=== PATIENT | female | born 1990 | race Caucasian/White ===

== ENCOUNTER 2018-11-16 14:22 | Emergency (ER) | payer OTHER ==
[2018-11-16 14:42] VITALS: RESP 18
[2018-11-16] MEDS ORDERED: SODIUM CHLORIDE 0.9% 500 ML 500 ML IV ONE (14:52)
[2018-11-16 15:28] LABS: Basophils % (A) 0 %; Eosinophils # (A) 0.3 k/uL (0-0.7); Eosinophils % (A) 3 %; HCT 38.6 % (34.0-46.0); HGB 13.1 gm/dL (11.4-16.0); Lymphocytes # (A) 2.4 k/uL (1.0-4.8); Lymphocytes % (A) 22 %; MCH 30.9 pg (25.0-35.0); MCHC 33.9 g/dL (31.0-37.0); Monocytes # (A) 0.4 k/uL (0-1.0); Monocytes % (A) 4 %; Neutrophils # (A) 7.9 k/uL (1.3-7.7); Neutrophils % (A) 71 %; Platelet Count 266 k/uL (150-450); RBC 4.24 m/uL (3.80-5.40); RDW 13.4 % (11.5-15.5); WBC 11.2 k/uL (3.8-10.6)
[2018-11-16 15:32] LABS: African American GFR (CKD) >90 (>60 ml/min/1.73 sqM); Anion Gap 8 mmol/L; Blood Urea Nitrogen 9 mg/dL (7-17); Calcium 9.6 mg/dL (8.4-10.2); Carbon Dioxide 22 mmol/L (22-30); Chloride 105 mmol/L (98-107); Glucose 98 mg/dL (74-99); Potassium 3.9 mmol/L (3.5-5.1); Sodium 135 mmol/L (137-145)
[2018-11-16 15:33] LABS: INR 0.9 (<1.2); Partial Thromboplastin Time 23.1 sec (22.0-30.0); Prothrombin Time 9.7 sec (9.0-12.0)
[2018-11-16 15:47] LABS: Appearance,Urine Cloudy (Clear); Bacteria,Urine Few /hpf; Bilirubin,Urine Negative (Negative); Blood,Urine Negative (Negative); Color,Urine Yellow; Glucose,Urine (UA) Negative (Negative); Ketones,Urine Negative (Negative); Leukocyte Esterase,Urine Large (Negative); Mucus,Urine Few /hpf; Nitrite,Urine Negative (Negative); Protein,Urine Trace (Negative); RBC,Urine 7 /hpf (0-5); Specific Gravity,Urine 1.011 (1.001-1.035); Squamous Epithelial Cell,Urine 30 /hpf (0-4); Urobilinogen,Urine <2.0 mg/dL (<2.0); WBC,Urine 11 /hpf (0-5)
--- NOTE | 2018-11-16 16:14 | US ---
EXAMINATION TYPE: Transabdominal DATE OF EXAM: 11/16/2018 4:05 PM COMPARISON: NONE CLINICAL HISTORY: pain. Back pain and chest pain. EXAM PERFORMED: Transabdominal (TA) EXAM MEASUREMENTS: GESTATIONAL AGE / DATING Physician Established: Not yet established Dates by LMP: (12 weeks/0 days) EDC: 05/31/2019 Dates by First Scan: No previous this is first scan Dates by Current Scan for: (8 weeks/0 days) EDC: 06/28/2019 MATERNAL ANATOMY Uterus: 10.9 x 6.1 x 8.1 cm Right Ovary: 2.6 x 1.3 x 1.4 cm Left Ovary: 4.0 x 2.4 x 3.9 Post CDS / Adnexa: wnl Presence of corpus luteal cyst: no Presence of subchorionic bleed: no GESTATION / SURVEY CRL: 1.6cm (8 weeks/0 days) Heart Rate: 149 bpm Rhythm: Normal IUP: Viable IUP Beta HcG (if available): Not available at this time IMPRESSION: Single viable intrauterine corresponding to ultrasound age 8 weeks 0 days with estimated da te of delivery 06/28/2019 by today's exam.
[2018-11-16 16:24] LABS: HCG,Quantitative Serum 59834.2 mIU/mL
--- NOTE | 2018-11-16 16:27 | ED ---
Abdominal Pain HPI - General Chief Complaint: Abdominal Pain Stated Complaint: -lower back pain Time Seen by Provider: 11/16/18 14:47 Source: patient, RN notes reviewed, old records reviewed Mode of arrival: ambulatory Limitations: no limitations - History of Present Illness Initial Comments: Patient is a 28-year-old female presents emergency room today with complaints of lower back pain radiating down her legs. Sure also reports that she's recently been on she is . Her last menstrual period was in August she does not how far long she was. Patient states that she had a confirmed test at her primary care doctor's office. She started to develop some numbness and tingling sensations on her legs for the past week. Patient denies any fevers or chills or shortness of breath. - Related Data Home Medications Medication Instructions Recorded Confirmed Nhu-Omuk-Pwfid Acid 1 cap PO DAILY 11/16/18 11/16/18 [-U Capsule (formulary)] Allergies Allergy/AdvReac Type Severity Reaction Status Date / Time No Known Allergies Allergy Verified 11/16/18 15:43 Review of Systems ROS Statement: Those systems with pertinent positive or pertinent negative responses have been documented in the HPI. ROS Other: All systems not noted in ROS Statement are negative. Past Medical History Past Medical History: No Reported History Additional Past Medical History / Comment(s): gallstones History of Any Multi-Drug Resistant Organisms: None Reported Past Surgical History: Appendectomy Additional Past Surgical History / Comment(s): IUD removal Past Anesthesia/Blood Transfusion Reactions: No Reported Reaction Past Psychological History: No Psychological Hx Reported Smoking Status: Current every day smoker Past Alcohol Use History: None Reported Past Drug Use History: None Reported - Past Family History Mother History Unknown: Yes Family Medical History: No Reported History General Exam Limitations: no limitations General appearance: alert, in no apparent distress Head exam: Present: atraumatic, normocephalic, normal inspection Eye exam: Present: normal appearance, PERRL, EOMI. Absent: scleral icterus, conjunctival injection, periorbital swelling ENT exam: Present: normal exam, mucous membranes moist Neck exam: Present: normal inspection. Absent: tenderness, meningismus, lymphadenopathy Respiratory exam: Present: normal lung sounds bilaterally. Absent: respiratory distress, wheezes, rales, rhonchi, stridor Cardiovascular Exam: Present: regular rate, normal rhythm, normal heart sounds. Absent: systolic murmur, diastolic murmur, rubs, gallop, clicks GI/Abdominal exam: Present: soft, normal bowel sounds. Absent: distended, tenderness, guarding, rebound, rigid Extremities exam: Present: normal inspection, full ROM, normal capillary refill, other (tenderness over lumbar spine and bilateral sciatica notch. ). Absent: tenderness, pedal edema, joint swelling, calf tenderness Back exam: Present: normal inspection Neurological exam: Present: alert, oriented X3, CN II-XII intact Psychiatric exam: Present: normal affect, normal mood Skin exam: Present: warm, dry, intact, normal color. Absent: rash Course Vital Signs 11/16/18 11/16/18 14:38 17:43 Temperature 98.7 F 97.6 F Pulse Rate 83 79 Respiratory 18 18 Rate Blood Pressure 137/75 118/75 O2 Sat by Pulse 98 100 Oximetry Medical Decision Making - Medical Decision Making This is a 28-year-old female, presents with concerns for back pain and . No fluid leakage or vaginal bleeding. She is on how far long she was. Ultrasound confirmed an 8 week intrauterine . Neck consistent with sciatica is raised and leg. Discussed likely normal . Discussed Tylenol for pain. Discussed following up with her OB and PCP. - Lab Data Result diagrams: 11/16/18 15:11 11/16/18 15:11 Lab Results 11/16/18 11/16/18 11/16/18 Range/Units 15:11 15:11 15:11 WBC 11.2 H (3.8-10.6) k/uL RBC 4.24 (3.80-5.40) m/uL Hgb 13.1 (11.4-16.0) gm/dL Hct 38.6 (34.0-46.0) % MCV 91.0 (80.0-100.0) fL MCH 30.9 (25.0-35.0) pg MCHC 33.9 (31.0-37.0) g/dL RDW 13.4 (11.5-15.5) % Plt Count 266 (150-450) k/uL Neutrophils % 71 % Lymphocytes % 22 % Monocytes % 4 % Eosinophils % 3 % Basophils % 0 % Neutrophils # 7.9 H (1.3-7.7) k/uL Lymphocytes # 2.4 (1.0-4.8) k/uL Monocytes # 0.4 (0-1.0) k/uL Eosinophils # 0.3 (0-0.7) k/uL Basophils # 0.0 (0-0.2) k/uL PT 9.7 (9.0-12.0) sec INR 0.9 (<1.2) APTT 23.1 (22.0-30.0) sec Sodium 135 L (137-145) mmol/L Potassium 3.9 (3.5-5.1) mmol/L Chloride 105 (98-107) mmol/L Carbon Dioxide 22 (22-30) mmol/L Anion Gap 8 mmol/L BUN 9 (7-17) mg/dL Creatinine 0.68 (0.52-1.04) mg/dL Est GFR (CKD-EPI)AfAm >90 (>60 ml/min/1.73 sqM) Est GFR (CKD-EPI)NonAf >90 (>60 ml/min/1.73 sqM) Glucose 98 (74-99) mg/dL Calcium 9.6 (8.4-10.2) mg/dL HCG, Quant 33344.2 mIU/mL Urine Color Urine Appearance (Clear) Urine pH (5.0-8.0) Ur Specific Wake (1.001-1.035) Urine Protein (Negative) Urine Glucose (UA) (Negative) Urine Ketones (Negative) Urine Blood (Negative) Urine Nitrite (Negative) Urine Bilirubin (Negative) Urine Urobilinogen (<2.0) mg/dL Ur Leukocyte Esterase (Negative) Urine RBC (0-5) /hpf Urine WBC (0-5) /hpf Ur Squamous Epith Cells (0-4) /hpf Urine Bacteria (None) /hpf Urine Mucus (None) /hpf Chlamydia Source Chlamydia DNA (PCR) (Neg,Equiv) N. gonorrhoeae Source N.gonorrhoeae DNA Probe (Neg,Equiv) Trichomonas Ag (Rapid) (Negative) Blood Type Blood Type Recheck 11/16/18 11/16/18 11/16/18 Range/Units 15:11 15:30 17:19 WBC (3.8-10.6) k/uL RBC (3.80-5.40) m/uL Hgb (11.4-16.0) gm/dL Hct (34.0-46.0) % MCV (80.0-100.0) fL MCH (25.0-35.0) pg MCHC (31.0-37.0) g/dL RDW (11.5-15.5) % Plt Count (150-450) k/uL Neutrophils % % Lymphocytes % % Monocytes % % Eosinophils % % Basophils % % Neutrophils # (1.3-7.7) k/uL Lymphocytes # (1.0-4.8) k/uL Monocytes # (0-1.0) k/uL Eosinophils # (0-0.7) k/uL Basophils # (0-0.2) k/uL PT (9.0-12.0) sec INR (<1.2) APTT (22.0-30.0) sec Sodium (137-145) mmol/L Potassium (3.5-5.1) mmol/L Chloride (98-107) mmol/L Carbon Dioxide (22-30) mmol/L Anion Gap mmol/L BUN (7-17) mg/dL Creatinine (0.52-1.04) mg/dL Est GFR (CKD-EPI)AfAm (>60 ml/min/1.73 sqM) Est GFR (CKD-EPI)NonAf (>60 ml/min/1.73 sqM) Glucose (74-99) mg/dL Calcium (8.4-10.2) mg/dL HCG, Quant mIU/mL Urine Color Yellow Urine Appearance Cloudy H (Clear) Urine pH 6.0 (5.0-8.0) Ur Specific Wake 1.011 (1.001-1.035) Urine Protein Trace H (Negative) Urine Glucose (UA) Negative (Negative) Urine Ketones Negative (Negative) Urine Blood Negative (Negative) Urine Nitrite Negative (Negative) Urine Bilirubin Negative (Negative) Urine Urobilinogen <2.0 (<2.0) mg/dL Ur Leukocyte Esterase Large H (Negative) Urine RBC 7 H (0-5) /hpf Urine WBC 11 H (0-5) /hpf Ur Squamous Epith Cells 30 H (0-4) /hpf Urine Bacteria Few H (None) /hpf Urine Mucus Few H (None) /hpf Chlamydia Source Vagina Chlamydia DNA (PCR) Negative (Neg,Equiv) N. gonorrhoeae Source N.gonorrhoeae DNA Probe (Neg,Equiv) Trichomonas Ag (Rapid) (Negative) Blood Type A Positive Blood Type Recheck No 11/16/18 11/16/18 Range/Units 17:19 17:19 WBC (3.8-10.6) k/uL RBC (3.80-5.40) m/uL Hgb (11.4-16.0) gm/dL Hct (34.0-46.0) % MCV (80.0-100.0) fL MCH (25.0-35.0) pg MCHC (31.0-37.0) g/dL RDW (11.5-15.5) % Plt Count (150-450) k/uL Neutrophils % % Lymphocytes % % Monocytes % % Eosinophils % % Basophils % % Neutrophils # (1.3-7.7) k/uL Lymphocytes # (1.0-4.8) k/uL Monocytes # (0-1.0) k/uL Eosinophils # (0-0.7) k/uL Basophils # (0-0.2) k/uL PT (9.0-12.0) sec INR (<1.2) APTT (22.0-30.0) sec Sodium (137-145) mmol/L Potassium (3.5-5.1) mmol/L Chloride (98-107) mmol/L Carbon Dioxide (22-30) mmol/L Anion Gap mmol/L BUN (7-17) mg/dL Creatinine (0.52-1.04) mg/dL Est GFR (CKD-EPI)AfAm (>60 ml/min/1.73 sqM) Est GFR (CKD-EPI)NonAf (>60 ml/min/1.73 sqM) Glucose (74-99) mg/dL Calcium (8.4-10.2) mg/dL HCG, Quant mIU/mL Urine Color Urine Appearance (Clear) Urine pH (5.0-8.0) Ur Specific Wake (1.001-1.035) Urine Protein (Negative) Urine Glucose (UA) (Negative) Urine Ketones (Negative) Urine Blood (Negative) Urine Nitrite (Negative) Urine Bilirubin (Negative) Urine Urobilinogen (<2.0) mg/dL Ur Leukocyte Esterase (Negative) Urine RBC (0-5) /hpf Urine WBC (0-5) /hpf Ur Squamous Epith Cells (0-4) /hpf Urine Bacteria (None) /hpf Urine Mucus (None) /hpf Chlamydia Source Chlamydia DNA (PCR) (Neg,Equiv) N. gonorrhoeae Source Vagina N.gonorrhoeae DNA Probe Negative (Neg,Equiv) Trichomonas Ag (Rapid) Negative (Negative) Blood Type Blood Type Recheck - Radiology Data Radiology results: report reviewed That JUNCTURE single viable IUP correspond with 8 weeks and 0 days. Delivery date 06/28/2019 Disposition Clinical Impression: Sciatica, 8 weeks gestation of Disposition: HOME SELF-CARE Condition: Good Instructions (If sedation given, give patient instructions): Abdominal Pain in (ED) Additional Instructions: Patient advised all with your primary care physician and [facility]. Patient can take Tylenol for pain. Return to the emergency department if any alarming signs or symptoms occur. Is patient prescribed a controlled substance at d/c from ED?: No Referrals: Wilfrid Carr MD [Primary Care Provider] - 1-2 days Time of Disposition: 16:54
[2018-11-16 17:44] VITALS: BP 118/75; PULSE 79; TEMP 97.6
[2018-11-18 14:33] LABS: N. gonorrhoeae,PCR Negative (Neg,Equiv); Neisseria Source Vagina
[2018-11-18 15:14] LABS: C. trachomatis,PCR Negative (Neg,Equiv); Chlamydia trachomatis Source Vagina
== END 2018-11-16 17:44 | disposition home or self-care (01) ==
LOC: EC 14:22
DX: O99.89 Other specified diseases and conditions complicating pregnancy, childbirth and the puerperium (principal); M54.41 Lumbago with sciatica, right side; M54.42 Lumbago with sciatica, left side; R10.9 Unspecified abdominal pain; O99.331 Smoking (tobacco) complicating pregnancy, first trimester; F17.200 Nicotine dependence, unspecified, uncomplicated; Z87.19 Personal history of other diseases of the digestive system; Z90.49 Acquired absence of other specified parts of digestive tract; Z3A.08 8 weeks gestation of pregnancy
CPT/HCPCS: 36415; 76801; 80048; 81001; 84702; 85025; 85610; 85730; 86900; 86901; 87070; 87205; 87491; 87591; 87808; 99284

== ENCOUNTER 2019-03-01 18:32 | Outpatient (CLI) | payer OTHER ==
[2019-03-01 19:43] LABS: Appearance,Urine Cloudy (Clear); Bacteria,Urine Occasional /hpf; Bilirubin,Urine Negative (Negative); Blood,Urine Negative (Negative); Color,Urine Light Yellow; Glucose,Urine (UA) Negative (Negative); Ketones,Urine Negative (Negative); Leukocyte Esterase,Urine Trace (Negative); Mucus,Urine Rare /hpf; Nitrite,Urine Negative (Negative); Protein,Urine Negative (Negative); RBC,Urine 1 /hpf (0-5); Specific Gravity,Urine 1.004 (1.001-1.035); Squamous Epithelial Cell,Urine 15 /hpf (0-4); Urobilinogen,Urine <2.0 mg/dL (<2.0); WBC,Urine 5 /hpf (0-5)
[2019-03-01 19:58] VITALS: BP 117/60; PULSE 77; RESP 16; TEMP 97.4
--- NOTE | 2019-03-02 07:59 | P.MSEPDOC ---
Presenting Problems - Arrival Data Date of Arrival on Unit: 03/01/19 Time of Arrival on Unit: 18:32 Mode of Transport: Ambulatory - Complaint OB-Reason for Admission/Chief Complaint: Pain Comment: lower back pain and cramping Medical History - Information : 3 Para: 2 Term: 2 : 0 Abortions: Spontaneous or Elective: 0 Number of Living Children: 2 - Gestational Age Gestational Age by HIEN (wks/days): 23 Weeks and 0 Days - History Complications: Smoker Review of Systems - Review of Systems Constitutional: No problems Breast: No problems ENT: No problems Cardiovascular: No problems Respiratory: No problems Gastrointestinal: No problems Genitourinary: No problems Musculoskeletal: No problems Neurological: No problems Skin: No problems Vital Signs - Temperature Temperature: 97.4 F Temperature Source: Temporal Artery Scan - Pulse Right Brachial Pulse Rate: 77 Pulse Assessment Method: Automatic Cuff - Respirations Respiratory Rate: 16 Oxygen Delivery Method: Room Air O2 Sat by Pulse Oximetry: 97 - Blood Pressure Right Arm Blood Pressure: 117/60 Blood Pressure Mean: 79 Blood Pressure Source: Automatic Cuff Medical Screen Scoring (Pre) - Cervical Exam Dilation: 0 cm = 0 Membranes: Intact - Uterine Contractions Frequency: N/A Duration: N/A Intensity: N/A - Maternal Vital Signs Maternal Temperature: N/A Maternal Blood Pressure: N/A Signs of Preeclampsia: N/A Maternal Respirations: N/A - Maternal Trauma Maternal Trauma: N/A - Assessment - Baby A Baseline FHR: 145 Heart Rate - NICHD Category: Category I (Normal) = 0 NST: Reactive Position: N/A Station: N/A - Total Score - Baby A Total Score - Baby A: 0 - Total Score - Baby B Total Score - Baby B: 0 - Total Score - Baby C Total Score - Baby C: 0 - Level of Risk - Baby A Level of Risk - Baby A: Low (0-5) - Level of Risk - Baby B Level of Risk - Baby B: Low (0-5) - Level of Risk - Baby C Level of Risk - Baby C: Low (0-5) Physician Notification (Pre) - Physician Notified Physician Notified Date: 03/01/19 Physician Notified Time: 19:49 New Order Received: Yes - Notification Comment Comment: Dr. Blount given report on pt in tr. Pt vag exam of closed/thick/high. UA results. Orders received to d/c pt to home. To educate pt to follow up with Dr. Dukes. Disposition - Disposition OB Disposition: Discharge to home Discharge Date: 03/01/19 Discharge Time: 19:58 I agree with the RN Medical Screening Exam: Yes Risk & Benefit of care provided described in d/c instruction: Yes Diagnosis: LOW BACK PAIN (Evaluation shows no evidence of labor or maternal compromise. Patient has chronic low back pain is been exacerbated by . Patient is given strict instructions to return if there are other signs including but not limited to vaginal bleeding or contractions.)
== END 2019-03-01 19:59 | disposition home or self-care (01) ==
LOC: FBPOP 18:32
PROVIDERS: ATTEND Obstetrics & Gynecology
DX: O99.89 Other specified diseases and conditions complicating pregnancy, childbirth and the puerperium (principal); M54.5 Low back pain; Z3A.23 23 weeks gestation of pregnancy
CPT/HCPCS: 81001; G0463; 99213

== ENCOUNTER 2019-06-26 06:15 | Inpatient (IN) | payer OTHER ==
[2019-06-28] MEDS ORDERED: LIDOCAINE 0.5% (PF) 5 MG/ML (50 ML SDV) SQ PRN (06:22)
[2019-06-28] MEDS ORDERED: TERBUTALINE 1 MG/ML VIAL SQ PRN (06:22)
[2019-06-28] MEDS ORDERED: CARBOPROST TROMETHAMINE 250 MCG/ML 1 ML AMP IM PRN (06:22)
[2019-06-28] MEDS ORDERED: OXYTOCIN 10 UNIT/ML 1 ML VIAL IM PRN (06:22)
[2019-06-28] MEDS ORDERED: METHYLERGONOVINE 0.2 MG/ML 1 ML AMP IM PRN (06:22)
[2019-06-28] MEDS ORDERED: OXYTOCIN 30 UNITS/500 ML NS 30 UNIT in SALINE 1 500ML.BAG IV SCH (06:30)
[2019-06-28] MEDS: LACTATED RINGERS 1,000 ML IV SCH ×2 (06:56→09:19)
[2019-06-28 07:07] LABS: Basophils % (A) 0 %; Eosinophils # (A) 0.2 k/uL (0-0.7); Eosinophils % (A) 1 %; HCT 36.2 % (34.0-46.0); HGB 12.1 gm/dL (11.4-16.0); Lymphocytes % (A) 22 %; MCH 30.7 pg (25.0-35.0); MCHC 33.4 g/dL (31.0-37.0); MCV 91.8 fL (80.0-100.0); Mean Platelet Volume 8.3; Monocytes # (A) 0.5 k/uL (0-1.0); Monocytes % (A) 4 %; Neutrophils % (A) 71 %; Platelet Count 389 k/uL (150-450); RBC 3.95 m/uL (3.80-5.40); RDW 12.6 % (11.5-15.5)
[2019-06-28] MEDS ORDERED: SODIUM CHLORIDE 0.9% 100 ML BAG ONE (08:59)
[2019-06-28] MEDS ORDERED: ROPIVACAINE 5MG/ML 20ML VIAL ONE (08:59)
[2019-06-28] MEDS ORDERED: fentaNYL (PF) 50 MCG/ML 5 ML AMP ONE (08:59)
[2019-06-28] MEDS ORDERED: diphenhydrAMINE 25 MG CAP PO PRN (11:53)
[2019-06-28] MEDS ORDERED: HYDROCORTISONE 2.5% RECTAL CREAM 30 GM TUBE RECTAL PRN (11:53)
[2019-06-28] MEDS ORDERED: diphenhydrAMINE 50 MG/ML 1 ML VIAL IVP PRN ×2 (11:53)
[2019-06-28] MEDS ORDERED: SIMETHICONE 80 MG CHEWABLE PO PRN (11:53)
[2019-06-28] MEDS ORDERED: diphenhydrAMINE 50 MG CAP PO PRN (11:53)
[2019-06-28] MEDS ORDERED: ZOLPIDEM 5 MG TAB PO PRN (11:53)
[2019-06-28] MEDS ORDERED: WITCH HAZEL 1 EACH MED..PAD TOPICAL PRN (11:53)
[2019-06-28] MEDS ORDERED: BENZOCAINE/MENTHOL SPRAY 1 GM/SPRAY AEROSOL TOPICAL PRN (11:53)
[2019-06-28] MEDS ORDERED: OXYTOCIN 20 UNITS/1000 ML NS 1,000 ML IV SCH (12:00)
--- NOTE | 2019-06-28 13:41 | P.HPOB ---
History of Present Illness H&P Date: 06/28/19 Chief Complaint: Intrauterine at term: Induction of labor Pat is a 28-year-old she 3 P2 at 39 weeks gestation. She arrives for induction of labor. Pitocin augmentation of labor has been discussed with artificial rupture membranes. All questions are answered for her prior to initiation of the induction. She is had a in generally speaking unremarkable course. She did have a positive blood type, Rh antibody was negative, rubella was immune, hepatitis B surface antigen/RPR and GBS were negative On physical exam vital signs are stable and afebrile. She was dilated 3-1/2 cm 80% effaced and -3 station. Artificial rupture membranes was performed and clear fluid is noted. heart tones reveal a category 1 reactive tracing. Her heart was regular, lungs were clear and extremities are without pain. Gravid uterus is noted. Assessment intrauterine term with expectation for epidural for analgesia Plan expect spontaneous vaginal delivery Past Medical History Past Medical History: No Reported History Additional Past Medical History / Comment(s): gallstones History of Any Multi-Drug Resistant Organisms: None Reported Past Surgical History: Appendectomy Additional Past Surgical History / Comment(s): IUD removal Past Anesthesia/Blood Transfusion Reactions: No Reported Reaction Past Psychological History: No Psychological Hx Reported Smoking Status: Current every day smoker Past Alcohol Use History: None Reported Past Drug Use History: None Reported Additional Drug Use History / Comment(s): Less than 1/2 pack a day - Past Family History Mother History Unknown: Yes Family Medical History: Cancer Additional Family Medical History / Comment(s): Grandmother had melanoma Medications and Allergies Home Medications Medication Instructions Recorded Confirmed Type Rhk-Udrt-Alfur Acid 1 cap PO DAILY 11/16/18 06/28/19 History [-U Capsule (formulary)] Allergies Allergy/AdvReac Type Severity Reaction Status Date / Time No Known Allergies Allergy Verified 06/28/19 06:21 Exam Osteopathic Statement: *. No significant issues noted on an osteopathic structural exam other than those noted in the History and Physical/Consult. Vital Signs Temp Pulse Resp BP Pulse Ox 06/28/19 13:10 71 16 122/73 06/28/19 12:40 97.3 F L 66 16 98/52 06/28/19 12:10 82 16 107/51 06/28/19 11:55 74 16 112/52 06/28/19 11:40 72 16 112/59 06/28/19 11:25 78 16 115/56 06/28/19 11:10 97.6 F 84 16 121/67 06/28/19 07:11 97.6 F 88 16 118/78 98 Intake and Output 06/27/19 06/28/19 06/28/19 22:59 06:59 14:59 Other: # Voids 1 Weight 93.894 kg 93.894 kg Results Result Diagrams: 06/28/19 06:51 Abnormal Lab Results - Last 24 Hours (Table) 06/28/19 Range/Units 06:51 WBC 14.0 H (3.8-10.6) k/uL Neutrophils # 10.0 H (1.3-7.7) k/uL
--- NOTE | 2019-06-28 13:42 | P.PROBDLV ---
Vaginal Delivery Note - . Vaginal Delivery Note: Patient progressed complete and pushing with spontaneous vaginal delivery of a viable male over an intact perineum. Following delivery of the head anterior posterior shoulders were easily delivered with gentle downward upper traction followed by the remainder the baby from right occiput anterior position. Once baby was fully developed mouth nares were bulb suctioned and baby was placed on mother's abdomen where the umbilical cord was allowed to pulsate for 30 seconds prior to clamping and cutting. At this point nursery personnel was present and assumed care. Placenta was then delivered intact Pitocin was added to the IV. scores were 9 and 9 at one and 5 minutes respectively weight was 7 lbs. 12 oz. and both mother and baby are stable following delivery.
[2019-06-28] MEDS: IBUPROFEN 600 MG TAB PO PRN (18:12)
[2019-06-28] MEDS: ACETAMINOPHEN TAB 325 MG TAB PO PRN (20:40)
[2019-06-28] MEDS: SENNOSIDES-DOCUSATE SODIUM 1 EACH TAB PO SCH (20:40)
[2019-06-29] MEDS: IBUPROFEN 600 MG TAB PO PRN ×2 (00:12→08:40)
[2019-06-29] MEDS: ACETAMINOPHEN TAB 325 MG TAB PO PRN (04:10)
[2019-06-29] MEDS: SENNOSIDES-DOCUSATE SODIUM 1 EACH TAB PO SCH (08:40)
[2019-06-29 09:34] VITALS: BP 111/68; PULSE 69; RESP 18; TEMP 97.4
--- NOTE | 2019-06-29 09:55 | P.DS ---
Providers Date of admission: 06/28/19 06:11 Expected date of discharge: 06/29/19 Attending physician: Christoph Dukes Primary care physician: Stated None - Discharge Diagnosis(es) (1) Normal vaginal delivery Current Visit: Yes Status: Acute Hospital Course: Patient presented for induction of labor. She underwent normal vaginal delivery. Her course was uncomplicated. She'll be discharged home day #1 in stable condition to follow-up with Dr. Sheldon in 6 weeks. Plan - Discharge Summary New Discharge Prescriptions: New Ibuprofen [Motrin] 600 mg PO Q6HR PRN #30 tab PRN Reason: Mild Pain Or Fever >= 100.5 No Action Yhp-Iibf-Fbobg Acid [-U Capsule (formulary)] 1 cap PO DAILY Discharge Medication List Gwm-Jbgb-Miejh Acid [-U Capsule (formulary)] 1 cap PO DAILY 11/16/18 [History] Ibuprofen [Motrin] 600 mg PO Q6HR PRN #30 tab 06/29/19 [Rx] Follow up Appointment(s)/Referral(s): Virginia Bryan DO [Doctor of Osteopathic Medicine] - 6 Weeks Discharge Disposition: HOME SELF-CARE
== END 2019-06-29 14:40 | disposition home or self-care (01) | DRG 807 ==
LOC: 4FBP 06-28 06:11
PROVIDERS: ADMIT Obstetrics & Gynecology; ATTEND Obstetrics & Gynecology
PROC: 00HU33Z Insertion of Infusion Device into Spinal Canal, Percutaneous Approach (ICD-10-PCS; principal; 2019-06-28)
PROC: 3E0R3BZ Introduction of Anesthetic Agent into Spinal Canal, Percutaneous Approach (ICD-10-PCS; principal; 2019-06-28)
PROC: 10E0XZZ Delivery of Products of Conception, External Approach (ICD-10-PCS; principal; 2019-06-28)
DX: O99.62 Diseases of the digestive system complicating childbirth (principal); Z37.0 Single live birth; O99.334 Smoking (tobacco) complicating childbirth; F17.210 Nicotine dependence, cigarettes, uncomplicated; Z3A.39 39 weeks gestation of pregnancy; Z90.49 Acquired absence of other specified parts of digestive tract; Z80.8 Family history of malignant neoplasm of other organs or systems
CPT/HCPCS: 85025; 86850; 86900; 86901

== ENCOUNTER 2023-12-13 18:32 | Emergency (ER) | payer OTHER ==
[2023-12-13 18:51] VITALS: TEMP 98.3
--- NOTE | 2023-12-13 18:51 | ED ---
Extremity Problem HPI - General Source: patient, RN notes reviewed Mode of arrival: ambulatory Limitations: no limitations <Petra Solis - Last Filed: 12/13/23 18:50> <Arely Montgomery - Last Filed: 12/13/23 20:27> - General Stated complaint: L Leg/foot pain Time Seen by Provider: 12/13/23 18:50 - History of Present Illness Initial comments: Quick note: 33-year-old female presenting to the ER with a chief complaint of left lower extremity pain. Patient states for the past 6 months she has noticed a bruise on her left foot. This has been growing in size. She states for the past 2 weeks she has had an increase in pain traveling to her knee and now her hip. Patient was sent here by [facility] urgent care for evaluation. Patient is a current smoker. No recent travel. Denies a history of blood clots no blood thinner use. (Petra Solis) 33-year-old female presenting with chief complaint of left lower extremity pain. Patient states that for the last 6 months she has had some soreness to the left lower leg as well as a bruise on her left foot. She states that sometimes it feels like her foot is "on fire". She denies any injury or trauma. Over the past 2 weeks she feels like the pain has been worse. She was sent here by urgent care. Patient is a current smoker. No recent travel. No history of blood clots or use of blood thinners. (Arely Montgomery) - Related Data Home Medications Medication Instructions Recorded Confirmed Ttb-Taxw-Gerha Acid 1 cap PO DAILY 11/16/18 06/28/19 [-U Capsule (formulary)] Previous Rx's Medication Instructions Recorded Ibuprofen [Motrin] 600 mg PO Q6HR PRN #30 tab 06/29/19 Allergies Allergy/AdvReac Type Severity Reaction Status Date / Time tramadol Allergy Nausea & Verified 12/13/23 18:50 Vomiting Review of Systems ROS Other: All systems not noted in ROS Statement are negative. <Petra Solis - Last Filed: 12/13/23 18:50> ROS Other: All systems not noted in ROS Statement are negative. <Arely Montgomery - Last Filed: 12/13/23 20:27> ROS Statement: Those systems with pertinent positive or pertinent negative responses have been documented in the HPI. Past Medical History Past Medical History: No Reported History Additional Past Medical History / Comment(s): gallstones History of Any Multi-Drug Resistant Organisms: None Reported Past Surgical History: Appendectomy Additional Past Surgical History / Comment(s): IUD removal Past Anesthesia/Blood Transfusion Reactions: No Reported Reaction Past Psychological History: No Psychological Hx Reported Past Alcohol Use History: None Reported Past Drug Use History: None Reported Additional Drug Use History / Comment(s): Less than 1/2 pack a day - Past Family History Mother History Unknown: Yes Family Medical History: Cancer Additional Family Medical History / Comment(s): Grandmother had melanoma <Petra Solis - Last Filed: 12/13/23 18:50> General Exam <Petra Solis - Last Filed: 12/13/23 18:50> Limitations: no limitations General appearance: alert, in no apparent distress Head exam: Present: atraumatic, normocephalic Eye exam: Present: normal appearance, EOMI Neck exam: Present: normal inspection. Absent: meningismus Respiratory exam: Absent: respiratory distress Cardiovascular Exam: Present: regular rate Left Lower Leg exam: Present: normal inspection, full ROM, tenderness, swelling (Very minor), ecchymosis (Bruise to the dorsal surface of the foot) Neurovascular tendon exam: Present: no vascular compromise (Normal distal pulses) Neurological exam: Present: alert, oriented X3 Psychiatric exam: Present: normal affect, normal mood Skin exam: Present: warm, dry <Arely Montgomery - Last Filed: 12/13/23 20:27> - General Exam Comments Initial Comments: Visual Physical Exam Vital signs reviewed General: Well-appearing, nontoxic, no acute distress. Head: Normocephalic, atraumatic Eyes: PERRLA, EOMI ENT: Airway patent Chest: Nonlabored breathing Skin: No visual rash, normal skin tone Neuro: Alert and oriented 3 Musculoskeletal: No gross abnormalities (Petra Solis) Course Vital Signs 12/13/23 18:48 Temperature 98.3 F Pulse Rate 78 Respiratory 18 Rate Blood Pressure 141/78 O2 Sat by Pulse 98 Oximetry Medical Decision Making <Petra Solis - Last Filed: 12/13/23 18:50> <Arely Montgomery Filed: 12/13/23 20:27> - Medical Decision Making I performed the quick note portion of this chart. Electronically signed by Petra Solis PA-C (Petra Solis) Was pt. sent in by a medical professional or institution ([facility], [facility], urgent care, hospital, or jail...) When possible be specific @ -Urgent care Did you speak to anyone other than the patient for history (EMS, parent, family, police, friend...)? What history was obtained from this source @ -No Did you review nursing and triage notes (agree or disagree)? Why? @ -I reviewed and agree with nursing and triage notes Were old charts reviewed (outside hosp., previous admission, EMS record, old EKG, old radiological studies, urgent care reports/EKG's, jail records)? Report findings @ -No old charts were reviewed Differential Diagnosis (chest pain, altered mental status, abdominal pain women, abdominal pain men, vaginal bleeding, weakness, fever, dyspnea, syncope, headache, dizziness, GI bleed, back pain, seizure, CVA, palpatations, mental health, musculoskeletal)? @ -Differential Musculoskeletal Muscular strain, contusion, ligament sprain, fracture, arthritis, septic arthritis, bursitis, cellulitis, muscle spasm, nerve compression, DVT, arterial occlusion, herpes zoster, electrolyte abnormality, tumor.... This is not meant to be in all inclusive list EKG interpreted by me (3pts min.). @ -As above X-rays interpreted by me (1pt min.). @ -X-ray shows no evidence of acute osseous process CT interpreted by me (1pt min.). @ -None done U/S interpreted by me (1pt. min.). @ -Ultrasound is negative for DVT What testing was considered but not performed or refused? (CT, X-rays, U/S, labs)? Why? @ -None What meds were considered but not given or refused? Why? @ -None Did you discuss the management of the patient with other professionals (professionals i.e. [facility], [facility], lab, RT, psych nurse, social human services assistants, hook puller, teacher, special forces officer, showcase trimmer)? Give summary @ -No Was smoking cessation discussed for >3mins.? @ -No Was critical care preformed (if so, how long)? @ -No Were there social determinants of health that impacted care today? How? (Homelessness, low income, unemployed, alcoholism, drug addiction, transportation, low edu. Level, literacy, decrease access to med. care, penitentiary, rehab)? @ -No Was there de-escalation of care discussed even if they declined (Discuss DNR or withdrawal of care, Hospice)? DNR status @ -No What co-morbidities impacted this encounter? (DM, HTN, Smoking, COPD, CAD, Cancer, CVA, ARF, Chemo, Hep., AIDS, mental health diagnosis, sleep apnea, morbid obesity)? @ -None Was patient admitted / discharged? Hospital course, mention meds given and route, prescriptions, significant lab abnormalities, going to OR and other pertinent info. @ -33-year-old female presenting with chief complaint of left lower leg pain. Sent by urgent care. Ultrasound is negative for DVT and x-ray is negative for acute osseous process. Patient is neurovascularly intact. Provided with refe rral for PCP and orthopedics. Discharged. Follow-up with PCP. Report back to ER with any new or worsening symptoms. Discussed return parameters and answered all questions. Patient conveyed verbal understanding and agreed to the plan. I discussed this case in detail with my attending Dr. Elise Undiagnosed new problem with uncertain prognosis? @ -No Drug Therapy requiring intensive monitoring for toxicity (Heparin, Nitro, Insulin, Cardizem)? @ -No Were any procedures done? @ -No Diagnosis/symptom? @ -Metatarsalgia Acute, or Chronic, or Acute on Chronic? @ -Acute Uncomplicated (without systemic symptoms) or Complicated (systemic symptoms)? @ -Uncomplicated Side effects of treatment? @ -No Exacerbation, Progression, or Severe Exacerbation? @ -No Poses a threat to life or bodily function? How? (Chest pain, [place], [place], pneumonia, PE, COPD, DKA, ARF, appy, cholecystitis, CVA, Diverticulitis, Homicidal, Suicidal, threat to staff... and all critical care pts) @ -Unlikely (Arely Montgomery) Disposition <Petra Solis - Last Filed: 12/13/23 18:50> Is patient prescribed a controlled substance at d/c from ED?: No Time of Disposition: 20:13 <Arely Montgomery - Last Filed: 12/13/23 20:27> Clinical Impression: Foot pain Disposition: HOME SELF-CARE Condition: Good Instructions (If sedation given, give patient instructions): Metatarsalgia (DC) Additional Instructions: Follow-up with PCP and orthopedics. Report back to ER with any new or worsening symptoms. Referrals: Juan F Matos MD [STAFF PHYSICIAN] - 1-2 days Alton Rand DO [Doctor of Osteopathic Medicine] - 1-2 days
--- NOTE | 2023-12-13 19:21 | US ---
EXAMINATION TYPE: US venous doppler duplex LE LT DATE OF EXAM: 12/13/2023 7:09 PM COMPARISON: NONE CLINICAL INDICATION: Female, 33 years old with history of calf pain; Calf pain for a few days. No hx dvt. patient not on thinners. SIDE PERFORMED: Left TECHNIQUE: The lower extremity deep venous system is examined utilizing real time linear array sonog carlos with graded compression, doppler sonography and color-flow sonography. VESSELS IMAGED: Common Femoral Vein Deep Femoral Vein Greater Saphenous Vein * Femoral Vein Popliteal Vein Small Saphenous Vein * Proximal Calf Veins (* superficial vessels) Grayscale, color doppler, spectral doppler imaging performed of the deep veins of the lower extremiti es. There is normal flow, compressibility, vascular waveforms. Left Leg: Negative for DVT IMPRESSION: No evidence of deep venous thrombosis.
--- NOTE | 2023-12-13 19:55 | XR ---
EXAMINATION TYPE: XR foot complete LT DATE OF EXAM: 12/13/2023 7:48 PM CLINICAL INDICATION:Female, 33 years old with history of pain; [facility] COMPARISON: None TECHNIQUE: The left foot was examined in the AP, oblique, and lateral projections. FINDINGS: No evidence of any acute osseous pathology. No evidence of soft tissue swelling. Joints are preserve d. IMPRESSION: No evidence of acute osseous process.
[2023-12-13 21:07] VITALS: BP 122/77; PULSE 59; RESP 16
== END 2023-12-13 21:07 | disposition home or self-care (01) ==
LOC: EC 18:32
CPT/HCPCS: 99283